=== PATIENT | female | born 1990 | race Hispanic/Latino ===

== ENCOUNTER 2019-06-11 13:29 | Emergency (ER) | payer BC, OTHER ==
[~2019-06-11] VITALS: Ht 154.9 cm; Wt 138.3 kg
--- OUTSIDE RECORDS SUMMARY | 2019-06-11 13:31 | XMS REPORT ---
Author Author [facility] Address Unknown Phone Unavailable Care Team Providers Care Referral Specialist Name Role Phone Unavailable Unavailable Problems This patient has no known problems. Allergies, Adverse Reactions, Alerts This patient has no known allergies or adverse reactions. Medications This patient has no known medications. Results Test Description Test Time Test Comments Text Results Atomic Results Result Comments SCREEN, URINE 2017-01-16 15:42:00 TEST URINE (BEAKER) (test sfyr=070) Negative URINALYSIS W/ [id number] 15:40:00* Test Item Value Reference Range Comments COLOR (BEAKER) (test zlef=658) Light Yellow CLARITY (BEAKER) (test ljhw=791) Clear SPECIFIC GRAVITY UA (BEAKER) (test xzfg=229) 1.003 1.001-1.035 PH UA (BEAKER) (test pqur=627) 6.0 5.0-8.0 PROTEIN UA (BEAKER) (test kkku=965) Negative Negative GLUCOSE UA (BEAKER) (test rmye=372) Negative Negative KETONES UA (BEAKER) (test zbkv=335) Negative Negative BILIRUBIN UA (BEAKER) (test prct=188) Negative Negative BLOOD UA (BEAKER) (test murq=405) Negative Negative NITRITE UA (BEAKER) (test ceep=457) Negative Negative LEUKOCYTE ESTERASE UA (BEAKER) (test kyko=161) Negative Negative UROBILINOGEN UA (BEAKER) (test jzne=374) < mg/dL 0.2-1.0 RBC UA (BEAKER) (test sekh=279) < /HPF WBC UA (BEAKER) (test apqn=726) < /HPF SOURCE(BEAKER) (test vvri=6426)
[2019-06-11 15:47] LABS: BASOPHILS % 0.4 % (0.0-1.0); EOSINOPHILS # (AUTO) 0.1 (0.0-0.4); EOSINOPHILS % 1.1 % (0.0-6.0); HEMATOCRIT 44.2 % (34.2-44.1); HEMOGLOBIN 14.4 g/dL (12.0-16.0); LYMPHOCYTES # (AUTO) 1.6 (1.0-3.2); LYMPHOCYTES % 29.8 % (18.0-39.1); MEAN CORPUSCULAR HEMOGLOBIN 28.7 pg (28-32); MEAN CORPUSCULAR HGB CONC 32.6 g/dL (31-35); MEAN CORPUSCULAR VOLUME 88.2 fL (81-99); MONOCYTES # (AUTO) 0.5 (0.2-0.8); MONOCYTES % 9.7 % (4.4-11.3); NEUTROPHILS # (AUTO) 3.1 (2.1-6.9); NEUTROPHILS % 58.6 % (38.7-80.0); PLATELET COUNT 229 x10e3/uL (140-360); RED BLOOD COUNT 5.01 x10e6/uL (3.6-5.1); RED CELL DISTRIBUTION WIDTH 13.3 % (11.7-14.4)
[2019-06-11 15:50] LABS: CLARITY,URINE SL CLOUDY (CLEAR); COLOR,URINE STRAW (YELLOW); LEUKOCYTE ESTERASE ,URINE 1+ (NEGATIVE); NITRITE,URINE NEGATIVE (NEGATIVE); PROTEIN,URINE DIPSTICK NEGATIVE (NEGATIVE); URINE UROBILINOGEN 0.2 mg/dL (0.2 - 1)
[2019-06-11 15:51] LABS: BILIRUBIN,URINE NEGATIVE (NEGATIVE); KETONES,URINE 2+ (NEGATIVE)
[2019-06-11 16:07] LABS: BACTERIA,URINE MODERATE /HPF; EPITHELIAL CELLS,URINE MODERATE /LPF
[2019-06-11 16:10] LABS: ALANINE AMINOTRANSFERASE 34 IU/L (0-55); ALBUMIN 3.8 g/dL (3.5-5.0); ALBUMIN/GLOBULIN RATIO 0.9 (0.8-2.0); ALKALINE PHOSPHATASE 65 IU/L (40-150); ANION GAP 17.1 mmol/L (8-16); BLOOD UREA NITROGEN 10 mg/dL (7-26); BUN/CREATININE RATIO 14 (6-25); CALCIUM 9.9 mg/dL (8.4-10.2); CARBON DIOXIDE 21 mmol/L (22-29); CHLORIDE 102 mmol/L (98-107); EST GLOMERULAR FILTRATION RATE > 60 ML/MIN (60-); GLUCOSE 88 mg/dL (74-118); POTASSIUM 4.1 mmol/L (3.5-5.1); SODIUM 136 mmol/L (136-145)
[2019-06-11] MEDS ORDERED: CEFTRIAXONE SOD 1 GM VIAL ONE (16:42)
[2019-06-11] MEDS ORDERED: AZITHROMYCIN 250 MG TAB ONE (16:43)
[2019-06-11] MEDS ORDERED: LIDOCAINE HCL 1% LOCAL INJ 20 ML VIAL ONE (16:43)
[2019-06-11] MEDS ORDERED: FLUCONAZOLE 100 MG TAB PO ONE (16:45)
[2019-06-11] MEDS ORDERED: AZITHROMYCIN 250 MG TAB PO ONE (16:45)
[2019-06-11] MEDS ORDERED: CEFTRIAXONE SOD 250 MG VIAL IM ONE (16:45)
[2019-06-11 21:37] LABS: RBC MORPHOLOGY COMMENT NORMAL
[2019-06-11 21:38] LABS: PLATELET ESTIMATE ADEQUATE; PLATELET MORPHOLOGY COMMENT NORMAL; POIKILOCYTOSIS SLIGHT
== END 2019-06-11 17:14 | disposition home or self-care (01) ==
LOC: ER 13:29
DX: B00.1 Herpesviral vesicular dermatitis (principal); B37.0 Candidal stomatitis; E66.9 Obesity, unspecified
CPT/HCPCS: 36415; 80053; 81001; 84702; 85025; 99284; J0696; J2001